=== PATIENT | female | born 1960 | race Two or more races ===

== ENCOUNTER 2020-07-04 10:00 | Outpatient (CLI) | payer OTHER | END 2020-07-04 10:42 | disposition home or self-care (01) | LOC: MAMO-SONO 10:00 | PROVIDERS: ATTEND Specialist | DX: Z12.31 Encounter for screening mammogram for malignant neoplasm of breast (principal) ==

== ENCOUNTER 2022-05-06 07:05 | Outpatient (CLI) | payer OTHER | END 2022-05-06 07:10 | disposition home or self-care (01) | LOC: LAB 07:05 | PROVIDERS: ATTEND General Practice | DX: E11.9 Type 2 diabetes mellitus without complications (principal); E03.9 Hypothyroidism, unspecified; I10 Essential (primary) hypertension; L02.91 Cutaneous abscess, unspecified; A41.9 Sepsis, unspecified organism; R80.9 Proteinuria, unspecified; N39.0 Urinary tract infection, site not specified; Z11.1 Encounter for screening for respiratory tuberculosis; Z11.3 Encounter for screening for infections with a predominantly sexual mode of transmission; Z11.4 Encounter for screening for human immunodeficiency virus [HIV]; Z12.11 Encounter for screening for malignant neoplasm of colon; Z12.4 Encounter for screening for malignant neoplasm of cervix; Z13.0 Encounter for screening for diseases of the blood and blood-forming organs and certain disorders involving the immune mechanism; E78.2 Mixed hyperlipidemia; E11.8 Type 2 diabetes mellitus with unspecified complications; Z13.29 Encounter for screening for other suspected endocrine disorder; Z13.228 Encounter for screening for other metabolic disorders ==

== ENCOUNTER 2022-05-06 08:41 | Outpatient (CLI) | payer OTHER | END 2022-05-06 09:13 | disposition home or self-care (01) | LOC: TOM 08:41 | PROVIDERS: ATTEND General Practice | DX: N64.59 Other signs and symptoms in breast (principal); R42 Dizziness and giddiness; J34.0 Abscess, furuncle and carbuncle of nose; N63.20 Unspecified lump in the left breast, unspecified quadrant; R12 Heartburn; Z12.2 Encounter for screening for malignant neoplasm of respiratory organs; Z12.31 Encounter for screening mammogram for malignant neoplasm of breast; F17.219 Nicotine dependence, cigarettes, with unspecified nicotine-induced disorders; J44.9 Chronic obstructive pulmonary disease, unspecified; N63.42 Unspecified lump in left breast, subareolar; R10.9 Unspecified abdominal pain ==

== ENCOUNTER 2022-05-10 07:09 | Outpatient (CLI) | payer OTHER | END 2022-05-10 07:35 | disposition home or self-care (01) | LOC: LAB 07:09 | PROVIDERS: ATTEND General Practice | DX: Z12.11 Encounter for screening for malignant neoplasm of colon (principal); N39.0 Urinary tract infection, site not specified; E78.2 Mixed hyperlipidemia; E11.8 Type 2 diabetes mellitus with unspecified complications ==

== ENCOUNTER 2022-11-02 10:28 | Outpatient (CLI) | payer OTHER | END 2022-11-02 10:40 | disposition home or self-care (01) | LOC: MRI 10:28 | PROVIDERS: ATTEND Specialist | DX: M25.561 Pain in right knee (principal) | CPT/HCPCS: 73721 ==

== ENCOUNTER 2025-05-16 07:27 | Outpatient (CLI) | payer OTHER | END 2025-05-16 07:31 | disposition home or self-care (01) | LOC: NUCLEAR 07:27 | PROVIDERS: ATTEND Specialist | DX: I73.9 Peripheral vascular disease, unspecified (principal) ==

== ENCOUNTER 2025-05-17 07:35 | Outpatient (CLI) | payer OTHER | END 2025-05-17 07:36 | disposition home or self-care (01) | LOC: NUCLEAR 07:35 | PROVIDERS: ATTEND Specialist | DX: E11.9 Type 2 diabetes mellitus without complications (principal); I10 Essential (primary) hypertension ==